=== PATIENT | female | born 1990 | race Caucasian/White ===

== ENCOUNTER 2020-11-21 14:42 | Emergency (ER) | payer OTHER ==
[~2020-11-21] VITALS: Ht 162.6 cm; Wt 72.6 kg
[2020-11-21 14:59] VITALS: BP 129/74
--- NOTE | 2020-11-21 15:16 | NUR ---
EKG PERFORMED IN TRIAGE ROOM. EKG READS SINUS RHYTHM @ 72
--- NOTE | 2020-11-21 15:39 | NUR ---
Patient back from xray.
--- NOTE | 2020-11-21 15:45 | NUR ---
Lab at the bedside drawing patient's blood.
--- NOTE | 2020-11-21 15:52 | NUR ---
Patient is a 30 y/o female c/o intermittent chest pain that began around 1400h today while at home. Per patient, no aggravating or alleviating factors, has not tried anything for pain, denies injury or trauma. Per patient, pain is a tightness that radiates to jaw and bilateral arms and 1/10 pain scale right now (pain was 9/10 when she came in). Patient A&O x4, VSS, and in no acute distress. Patient denies SOB, abdominal pain, lightheaded or dizziness, dysuria, fever, chills, URI symptoms, sick contacts at home, or recent travel. Rx: denies PMH: denies Allergies: denies
[2020-11-21 16:04] LABS: BASOPHILS # (AUTO) 0.1 K/uL (0.00-0.22); BASOPHILS % (AUTO) 0.8 % (0.0-2.0); EOSINOPHILS # (AUTO) 0.1 K/uL (0-0.4); EOSINOPHILS % (AUTO) 0.6 % (0.0-4.0); HEMATOCRIT 40.5 % (36-48); HEMOGLOBIN 13.7 g/dL (12.0-16.0); LYMPHOCYTES # (AUTO) 2.5 K/uL (2.5-16.5); LYMPHOCYTES % (AUTO) 27.6 % (20.5-51.1); MEAN CORPUSCULAR HEMOGLOBIN 29 pg (27-31); MEAN CORPUSCULAR HGB CONC 34 g/dL (33-37); MEAN CORPUSCULAR VOLUME 86.1 fL (80-94); MONOCYTES # (AUTO) 0.5 K/uL (0.8-1.0); MONOCYTES % (AUTO) 5.9 % (1.7-9.3); NEUTROPHILS # (AUTO) 5.9 K/uL (1.8-7.7); NEUTROPHILS % (AUTO) 65.1 % (42.2-75.2); PLATELET COUNT (AUTO) 287 K/uL (140-450); RED CELL DISTRIBUTION WIDTH 13.3 % (11.6-13.7); WHITE BLOOD COUNT (AUTO) 9.1 K/uL (4.8-10.8)
[2020-11-21 16:20] LABS: ALBUMIN 3.9 g/dL (3.4-5.0); ANION GAP 8.7 (8-16); CARBON DIOXIDE 30.5 mmol/L (21-32); CREATININE 0.7 mg/dL (0.6-1.3); POTASSIUM 4.2 mmol/L (3.5-5.1); TOTAL BILIRUBIN 0.3 mg/dL (0.0-1.0)
--- NOTE | 2020-11-21 16:24 | NUR ---
Dr. Trevizo notified and aware of patient's troponin value.
[2020-11-21] MEDS ORDERED: ASPIRIN 81 MG TAB.CHEW PO ONE (16:40)
--- NOTE | 2020-11-21 17:10 | NUR ---
Alix and Novel Coronavirus specimens collected and taken to the lab.
--- NOTE | 2020-11-21 19:21 | NUR ---
Called [facility] ([phone]) and gave report to ASHER Love. Per Marcelle, athletic monitor, ETA is [phone].
--- NOTE | 2020-11-21 19:22 | NUR ---
Report given to ASHER Martel for continuation of care.
--- NOTE | 2020-11-21 19:30 | NUR ---
pt is sitting up in bed. vss. pt is in stable condition. denies pain and discomfort.
--- NOTE | 2020-11-21 19:45 | NUR ---
pt ambulated to and back to bed with steady gait.
--- NOTE | 2020-11-21 20:30 | NUR ---
pt is sleeping. opens eyes to sound. vss. equal rise and fall of chest wall. side rails x1. bed locked in lowest position.
--- NOTE | 2020-11-21 21:30 | NUR ---
pt is sleeping. opens eyes to sound. vss. equal rise and fall of chest wall. side rails x1. bed locked in lowest position.
[2020-11-21 21:54] VITALS: BP 118/76
--- NOTE | 2020-11-21 21:54 | NUR ---
Patient to be transferred to [facility] [place]. Is being transferred due to HIGHER LEVEL OF CARE. Receiving facility has accepting physician and available space. ER physician has signed transfer form. Patient or responsible libertarian has agreed to transfer and signed form. Patient belongings inventoried and will be sent with patient. Copy of nursing notes, lab reports, EKG, Physicians Orders and X-rays to be sent with patient. Report called to SEE YONATAN'S NOTE at receiving facility. [facility] service has been called for transfer. ETA is 15 MINS.
== END 2020-11-21 21:54 | disposition short-term general hospital (02) ==
LOC: MED 14:42
DX: R07.9 Chest pain, unspecified (principal); Z20.822 Contact with and (suspected) exposure to COVID-19; R77.8 Other specified abnormalities of plasma proteins; R68.84 Jaw pain
CPT/HCPCS: 36415; 71045; 80053; 83880; 84484; 84703; 85025; 87426; 93005; 99285; U0003

== ENCOUNTER 2023-06-08 02:02 | Emergency (ER) | payer OTHER ==
[~2023-06-08] VITALS: Ht 162.6 cm; Wt 82.8 kg
[2023-06-08 02:44] VITALS: BP 126/74; PULSE 74; RESP 16; TEMP 97.6; O2SAT 100
[2023-06-08 03:41] LABS: BASOPHILS # (AUTO) 0.1 K/uL (0.00-0.22); BASOPHILS % (AUTO) 0.5 % (0.0-2.0); EOSINOPHILS # (AUTO) 0.1 K/uL (0-0.4); EOSINOPHILS % (AUTO) 0.6 % (0.0-4.0); HEMATOCRIT 37.6 % (36-48); HEMOGLOBIN 12.8 g/dL (12.0-16.0); LYMPHOCYTES # (AUTO) 1.9 K/uL (2.5-16.5); LYMPHOCYTES % (AUTO) 16.3 % (20.5-51.1); MEAN CORPUSCULAR HEMOGLOBIN 30 pg (27-31); MEAN CORPUSCULAR HGB CONC 34 g/dL (33-37); MEAN CORPUSCULAR VOLUME 86.7 fL (80-94); MONOCYTES # (AUTO) 0.8 K/uL (0.8-1.0); MONOCYTES % (AUTO) 6.8 % (1.7-9.3); NEUTROPHILS # (AUTO) 8.9 K/uL (1.8-7.7); NEUTROPHILS % (AUTO) 75.8 % (42.2-75.2); PLATELET COUNT (AUTO) 230 K/uL (140-450); RED BLOOD CELL COUNT(AUTO) 4.34 MIL/uL (4.20-5.40); RED CELL DISTRIBUTION WIDTH 13.1 % (11.6-13.7); WHITE BLOOD COUNT (AUTO) 11.7 K/uL (4.8-10.8)
[2023-06-08 03:51] LABS: BILIRUBIN,URINE NEGATIVE (NEGATIVE); BLOOD, URINE 1+ (NEGATIVE); LEUKOCYTE ESTERASE ,URINE NEGATIVE (NEGATIVE); NITRITE, URINE NEGATIVE (NEGATIVE); PROTEIN,URINE NEGATIVE (NEGATIVE); UGLUCOSE NEGATIVE (NEGATIVE); UROBILINOGEN,URINE 0.2 EU/dL (0.2 - 1)
[2023-06-08 03:52] LABS: APPEARANCE,URINE CLEAR (CLEAR); COLOR,URINE YELLOW (YELLOW)
[2023-06-08 03:55] LABS: BACTERIA,URINE FEW /HPF (None Seen); MUCUS,URINE 1+ /LPF (None Seen); RBC,URINE 0-5 /HPF (0-5); SQUAMOUS EPITHELIAL CELL,UR 0-3 (FEW) /LPF (0-3 (FEW)); WBC,URINE 0-5 /HPF (0-5)
[2023-06-08 03:55] LABS: ANION GAP 9.6 (8-16); CALCIUM 8.3 mg/dL (8.5-10.1); CARBON DIOXIDE 28.6 mmol/L (21-32); CREATININE 0.7 mg/dL (0.6-1.3); POTASSIUM 4.2 mmol/L (3.5-5.1)
[2023-06-08] MEDS: KETOROLAC 60 MG/2 ML VIAL IM ONE (03:56)
[2023-06-08 04:01] LABS: ALBUMIN 3.5 g/dL (3.4-5.0); TOTAL BILIRUBIN 0.3 mg/dL (0.0-1.0); TOTAL PROTEIN, SERUM 6.9 g/dL (6.4-8.2)
[2023-06-08 04:12] LABS: BILIRUBIN,DIRECT 0.1 mg/dL (0.0-0.3)
[2023-06-08] MEDS ORDERED: ACET-8905 PO (05:23)
== END 2023-06-08 05:28 | disposition home or self-care (01) ==
LOC: MED 02:02
DX: K80.20 Calculus of gallbladder without cholecystitis without obstruction (principal); K80.50 Calculus of bile duct without cholangitis or cholecystitis without obstruction; Z79.899 Other long term (current) drug therapy
CPT/HCPCS: 36415; 76705; 80048; 80076; 81001; 81025; 82150; 83690; 85025; 96372; 99285; J1885